=== PATIENT | female | born 1965 | race Caucasian/White ===

== ENCOUNTER → 2016-11-06 | Outpatient (CLI) | payer MEDICARE ==
[~2016-11-06] MED LIST: ACETAMINOPHEN PO; ALPRAZOLAM PO; ALPRAZOLAM2 M1 PO; AMITRYPTYLINE PO; ATIVAN PO; AVELOX400 MG PO; CLEOCIN PO; CLINDAMYCIN HC300 MG PO; COMBIVENT INH14.7 GM INH; COPAXONE; COPAXONE IJ; CYANOCOBAL1000 MCG/M INJ; DELSYM30 MG/5 ML PO; DOXEPIN PO; GABITRIL4 MG PO; LAMICTAL PO; LORTAB 10/500 T1 TAB PO; METADATE CD20 MG PO; METADATE PO; METHOCARBAMOL PO; NAPROSYN500 MG PO; NAPROXEN PO; NASONEX17 GM; NEURONTIN PO; OXYCODONE HCL15 MG PO; OXYCODONE PO; OXYCONTIN PO; OXYCONTIN60 MG PO; PAXIL PO; PAXIL30 MG PO; PERCOCET PO; PERCOCET5/325 PO; PHENERGAN PO; PHENERGAN PR; PREDNISONE PO; PRILOSEC PO; RITALIN PO; ROBAXIN 750750 M1 PO; SERZONE PO; SOLU MEDRO IV; TEMAZEPAM30 MG PO; TOPAMAX PO; TOPIRAMATE100 MG PO; TRILEPTAL PO; TRILEPTAL300 MG PO; TYLENOL #3 PO; TYLOX 5/500 CAP1 CAP PO; VOLTAREN50 MG PO; ZANAFLEX PO; ZANAFLEX6 MG PO; [UNRECOGNIZED DRUG - OTHER]; [UNRECOGNIZED DRUG - OTHER]
--- NOTE | ~2016-11-06 | US6 ---
[facility] A Service of [facility] & [facility] RADIOLOGY TEXT RESULTS PATIENT: SOHAIL ESPARZA LOCATION: [facility] : 63 UNIT #: [id number] AGE: [address]: Lela Osorio MD SEX: F ORDER DR: [id number] [address] [address] [id number] O MR#: [id number] Acc #: [id number] NAME: SOHAIL ESPARZA : 1965 SEX: F STUDY DATE/TIME: 11/06/2016 9:02 UNIT: SG ROOM: STUDY DESCRIPTION: US Abdominal Limited Attending Physician: Lela Osorio M.D. Referring Physician: Lela Osorio M.D. Ordering Physician: Lela Osorio M.D. Primary Care Physician: Lela Osorio M.D. MEDICAL IMAGING REPORT This report is preliminary unless electronic signature is present. EXAM Ultrasound abdominal limited HISTORY Elevated LFTs for 2 weeks. Hernia surgery repair 6-month. Gallbladder removed over 10 years ago. No nausea, vomiting, diarrhea. TECHNIQUE Real-time ultrasonography right upper quadrant performed. COMPARISON CT abdomen and pelvis 06/10/2016. FINDINGS The pancreas is poorly visualized due to overlying bowel gas artifact. If pancreas is of acute clinical concern, it could be further evaluated with CT. The liver shows a patent portal vein with normal directional of flow. Hepatic veins and inferior vena cava are patent. Liver appears normal in size measuring 16.5 cm in craniocaudal extent. Normal contour and echotexture. No focal hepatic parenchymal abnormality. Right kidney measures 10 cm in greatest length. No hydronephrosis. No discrete shadowing calculi are seen. In the upper pole of the right kidney there is a 1.4 cm x 1.4 cm x 1.9 cm cyst. This appeared present on prior examination. Immediately adjacent to the cyst, there is an echogenic focus measuring 5.5 mm x 5.1 mm. Etiology unclear. This could represent a mural calcification along the cyst. I do not see discrete shadowing. Possibility of edge artifact could be considered. Small fatty deposit could be considered. It is best fully characterized with multiphase contrast-enhanced CT. Remainder the right kidney is unremarkable. There are no perinephric fluid collections. Patient is status post cholecystectomy. No intra- or extrahepatic biliary ductal dilatation. Common duct measures 1.6 mm in diameter. [facility]. [facility] A Service of [facility] & [facility] RADIOLOGY TEXT RESULTS PATIENT: SOHAIL ESPARZA LOCATION: [facility] : 63 UNIT #: [id number] AGE: [address]: Lela Osorio MD SEX: F ORDER DR: IMPRESSION 1. Liver appears normal. 2. Status post cholecystectomy. No biliary ductal dilatation. Common duct measures 1.6 mm in diameter. 3. Pancreas poorly visualized. The pancreas is of acute clinical concern, it could be further evaluated with CT. 4. No acute-appearing renal abnormality. There is a right upper pole renal cyst measuring up to about 1.9 cm in diameter. This was present on prior CT examination. Along the inferior wall of the cyst, there is a 5-5.5 mm echogenic focus of unclear exact etiology. It may represent a mural calcification possibly an edge artifact. It is best fully characterized with multiphase contrast-enhanced CT of the kidneys if the patient is a candidate for iodinated contrast material. If the patient is not a candidate for contrast material, then 6-month interval ultrasound follow up would be recommended. Dictated by... Yahir Salas M.D. THIS IS AN ELECTRONICALLY VERIFIED REPORT Yahir Salas M.D. at 11/07/2016 5:59 PM JUNIOR/kelvin TD: 11/06/2016 15:55 JOB #: [id number] MEDICAL IMAGING REPORT Page 1 of 1
== END | disposition home or self-care (01) ==
LOC: SGUS 09:08
DX: R79.89 Other specified abnormal findings of blood chemistry (principal); N28.1 Cyst of kidney, acquired; Z90.49 Acquired absence of other specified parts of digestive tract
CPT/HCPCS: 76705

== ENCOUNTER → 2016-11-11 | Outpatient (CLI) | payer MEDICARE ==
--- NOTE | ~2016-11-11 | CT6 ---
[facility] A Service of [facility] & [facility] RADIOLOGY TEXT RESULTS PATIENT: SOHAIL ESPARZA LOCATION: [facility] : 63 UNIT #: [id number] AGE: [address]: Lela Osorio MD SEX: F ORDER DR: [id number] [place] [id number] O MR#: [id number] Acc #: [id number] NAME: SOHAIL ESPARZA : 1965 SEX: F STUDY DATE/TIME: 11/11/2016 11:00 UNIT: [facility] ROOM: STUDY DESCRIPTION: CT Abdomen WWo Cont Attending Physician: Lela Osorio M.D. Referring Physician: Lela Osorio M.D. Ordering Physician: Lela Osorio M.D. Primary Care Physician: Lela Osorio M.D. MEDICAL IMAGING REPORT This report is preliminary unless electronic signature is present. EXAM CT abdomen. INDICATIONS Right renal mass. Upper abdominal pain for 2 months. Abnormal right upper quadrant ultrasound. TECHNIQUE CT of the abdomen with and without contrast (100 mL Isovue-370 IV contrast). Coronal and sagittal reconstructions were obtained. This CT exam was performed with one or more of the following radiation dose reduction techniques: automatic exposure control, adjustment of mA and/or kV according to patient size, and iterative reconstruction. COMPARISON Right upper quadrant ultrasound 11/06/2016, and CT abdomen 06/10/2016. FINDINGS Abdomen without contrast: The kidneys are symmetric in size. There is a benign low attenuation cyst in the superior right kidney measuring 2 cm. There are small left renal cysts measuring 1.4 cm and 0.9 cm. No hydronephrosis. No urinary calculi. Abdomen with contrast: There is no abnormal enhancement or mass in the kidneys. There are a few smaller intraparenchymal cysts that were not discernible on the noncontrasted portion. No suspicious renal lesion. Renal vasculature is patent. No hydronephrosis. There is uniform excretion of IV contrast into the renal collecting systems and Remaining solid abdominal organs are within normal limits. Gallbladder surgically absent. The bowel is not dilated. No acute osseous abnormalities. [facility]. [facility] A Service of [facility] & [facility] RADIOLOGY TEXT RESULTS PATIENT: SOHAIL ESPARZA LOCATION: [facility] : 63 UNIT #: [id number] AGE: [address]: Llea Osorio MD SEX: F ORDER DR: IMPRESSION 1. Benign bilateral renal cysts. No suspicious renal mass or renal lesion identified. Dictated by... Dylan Gutierrez M.D. THIS IS AN ELECTRONICALLY VERIFIED REPORT Dylan Gutierrez M.D. at 11/11/2016 2:21 PM MICHELLE/edith TD: 11/11/2016 13:46 JOB #: [id number] MEDICAL IMAGING REPORT Page 1 of 1
== END | disposition home or self-care (01) ==
LOC: SCT 09:53
DX: N28.89 Other specified disorders of kidney and ureter (principal); Q61.02 Congenital multiple renal cysts
CPT/HCPCS: 74150; Q9967

== ENCOUNTER 2017-01-29 16:31 | Emergency (ER) | payer MEDICARE ==
--- NOTE | ~2017-01-29 | CT71 ---
[facility] A Service of [facility] RADIOLOGY TEXT RESULTS PATIENT: SOHAIL ESPARZA LOCATION: [facility] : 63 UNIT #: [id number] AGE: [address]: Deuce Mclaughlin MD SEX: F ORDER DR: [id number] [place] [id number] E MR#: [id number] Acc #: [id number] NAME: SOHAIL ESPARZA : 1965 SEX: F STUDY DATE/TIME: 01/29/2017 16:49 UNIT: SED ROOM: STUDY DESCRIPTION: CT Head Wo Contrast Attending Physician: Deuce Mclaughlin M.D. Ordering Physician: Deuce Mclaughlin M.D. Primary Care Physician: Lela Osorio M.D. MEDICAL IMAGING REPORT This report is preliminary unless electronic signature is present. EXAM CT head without IV contrast. COMPARISON November 13, 2015 and March 06, 2010. INDICATIONS 51-year-old female with headache after falling 2 days ago. FINDINGS This CT exam was performed with one or more of the following radiation dose reduction techniques: automatic exposure control, adjustment of mA and/or kV according to patient size, and iterative reconstruction. Kitchen Mechanic topogram demonstrates surgical hardware which may involve the clavicle or possibly the proximal humerus. When comparing to radiographs of the left humerus on November 13, 2015, it is noted that there is hardware at the left clavicle. No significant subcutaneous hematoma. Mastoid air cells, middle ears and visualized, paranasal sinuses are well-aerated. Exam is mildly limited by motion. No acute fractures or suspicious osseous lesions. There is mild cerebral and cerebellar, volume loss, unchanged from comparison. No mass effect or abnormal extraaxial fluid collection. No acute intracranial hemorrhage. No evidence of acute ischemia. IMPRESSION No acute intracranial abnormality. Dictated by... Ignacio Hassan M.D. [facility] A Service of [facility] RADIOLOGY TEXT RESULTS PATIENT: SOHAIL ESPARZA LOCATION: [facility] : 63 UNIT #: [id number] AGE: [address]: Deuce Mclaughlin MD SEX: F ORDER DR: THIS IS AN ELECTRONICALLY VERIFIED REPORT Ignacio Hassan M.D. at 02/03/2017 10:54 PM BRANT/farida TD: 01/30/2017 00:13 JOB #: [id number] MEDICAL IMAGING REPORT Page 1 of 1
--- NOTE | ~2017-01-29 | CT52 ---
[facility] A Service of [facility] & [facility] RADIOLOGY TEXT RESULTS PATIENT: SOHAIL ESPARZA LOCATION: SED : 63 UNIT #: [id number] AGE: [address]: Deuce Mclaughlin MD SEX: F ORDER DR: [id number] [address] [address] [id number] E MR#: [id number] Acc #: [id number] NAME: SOHAIL ESPARZA : 1965 SEX: F STUDY DATE/TIME: 01/29/2017 17:09 UNIT: SED ROOM: STUDY DESCRIPTION: CT Cervical Spine Wo Cont Attending Physician: Deuce Mclaughlin M.D. Ordering Physician: Deuce Mclaughlin M.D. Primary Care Physician: Lela Osorio M.D. MEDICAL IMAGING REPORT This report is preliminary unless electronic signature is present. EXAM CT cervical spine without contrast. HISTORY 51-year-old female fell on face and bruising, abrasions injury Thursday night, [address] cervical spine, 06/24/2012. FINDINGS Thin section axial images performed through the cervical spine without contrast. Multiplanar reconstructed images reviewed. This CT exam was performed with one or more of the following radiation dose reduction techniques: automatic exposure control, adjustment of mA and/or kV according to patient size, and iterative reconstruction. No fracture or malalignment. Diffuse multilevel degenerative disc disease most pronounced C4-5, C5-6 and C6-7. Broad-based posterior disc protrusion osteophyte contributes to multilevel spinal and foraminal stenosis, with foraminal stenosis most pronounced on the right C5-6. There is also a C3-4 posterior disc protrusion osteophyte. On review of the soft tissue windows, there is large posterior disc herniations or disc protrusion C3-4, C4-5, C5-6 and C6-7 contribute to moderate central canal stenosis and bilateral foraminal stenosis. Paravertebral soft tissues unremarkable. IMPRESSION 1. No definite acute cervical spine abnormality. 2. Multilevel degenerative disc disease C3-4, C4-5, C5-6 and C6-7 with large posterior disc protrusions or herniations at multiple levels with associated disc osteophyte complex contributing to moderate to severe multilevel spinal and foraminal stenosis. This does [facility]. [facility] A Service of [facility] RADIOLOGY TEXT RESULTS PATIENT: SOHAIL ESPARZA LOCATION: [facility] : 63 UNIT #: [id number] AGE: [address]: Deuce Mclaughlin MD SEX: F ORDER DR: contribute to significant cord compression at multiple levels, but does not appear significantly progressed when compared to the patient's study from 2012. Dictated by... Olga Lidia Cuenca M.D. THIS IS AN ELECTRONICALLY VERIFIED REPORT Olga Lidia Cuenca M.D. at 01/30/2017 6:53 PM Clarissa TD: 01/29/2017 23:55 JOB #: [id number] MEDICAL IMAGING REPORT Page 1 of 1
== END 2017-01-29 17:56 | disposition home or self-care (01) ==
LOC: SED 16:31
DX: S09.90XA Unspecified injury of head, initial encounter (principal); S05.11XA Contusion of eyeball and orbital tissues, right eye, initial encounter; F41.9 Anxiety disorder, unspecified; F17.200 Nicotine dependence, unspecified, uncomplicated; W18.09XA Striking against other object with subsequent fall, initial encounter
CPT/HCPCS: 70450; 72125; 99283